=== PATIENT | male | born 1985 | race Two or more races ===

== ENCOUNTER 2018-02-23 12:23 | Outpatient (CLI) | payer OTHER ==
[~2018-02-23 12:23] MED LIST: FIORICET PO; FIORINAL 50-321 EACH PO; TOBRADEX EYE DR10 ML OP; ZITHROMAX500 MG PO
== END 2018-02-23 12:39 | disposition home or self-care (01) ==
LOC: SONOGRAMA 12:23
DX: Z00.01 Encounter for general adult medical examination with abnormal findings (principal); R10.9 Unspecified abdominal pain; N23 Unspecified renal colic